=== PATIENT | female | born 1955 | race Caucasian/White ===

== ENCOUNTER → 2016-07-13 | Outpatient (CLI) | payer MEDICARE, MEDICAID ==
[~2016-07-13] MED LIST: ALBU8.5H3 IH; ATOR20TA27 PO; CLON0.252 PO; ESZO3TAB PO; FENO145T10 PO; FEXO30TA10 PO; LACT1CAP67 PO; LANS15CA5 PO; LEVO25TA49 PO; META800T88 PO; METH20TA35 PO; MILK150C PO; SOLI5TAB5 PO; SUMA100T7 PO; TRAM-261 PO; UBID150C4 PO; UBIQ200C PO; [UNRECOGNIZED DRUG - CODE] PO
== END ==
LOC: WC.BC 13:10
DX: Z12.31 Encounter for screening mammogram for malignant neoplasm of breast (principal)
CPT/HCPCS: 77063; G0202